=== PATIENT | female | born 2000 | race Caucasian/White ===

== ENCOUNTER 2020-04-16 08:22 | Emergency (ER) | payer BC, OTHER, MEDICAID ==
[2020-04-16 08:35] VITALS: BP 126/60; PULSE 89
--- NOTE | 2020-04-16 08:52 | EDM.PDOC ---
ED HPI GENERAL MEDICAL PROBLEM - General Chief Complaint: Lower Extremity Injury/Pain Stated Complaint: L FOOT INJURY Time Seen by Provider: 04/16/20 08:33 Source of Information: Reports: Patient History Limitations: Reports: No Limitations, Other (ER vitals temp 97.8, pulse 89, respiratory rate 18, blood pressure 126/60, pulse ox 100% on room air.) - History of Present Illness INITIAL COMMENTS - FREE TEXT/NARRATIVE: 20-year-old female presents to the emergency department with complaints of left foot/ankle injury. States that just prior to arrival she was walking down the stairs and missed the last 2 stairs and does not recall exactly what happened however she heard a popping and cracking and did have instant severe pain noted to the left lateral ankle. Onset: Today, Sudden Left Ankle Pain Score (Numeric/FACES): 5 - Related Data Allergies Allergy/AdvReac Type Severity Reaction Status Date / Time amoxicillin Allergy Rash Verified 04/16/20 08:35 Home Meds: Home Meds oxyCODONE HCl/Acetaminophen [Percocet 5-325 mg Tablet] 1 each PO Q6H PRN #10 tablet 04/16/20 [Rx] Past Medical History - Past Health History Medical/Surgical History: Denies Medical/Surgical History RELAY MAN History: Reports: - Past Surgical History HEENT Surgical History: Reports: Other (See Below) Other HEENT Surgeries/Procedures: tooth extraction 2007 Social & Family History - Family History Family Medical History: No Pertinent Family History - Caffeine Use Caffeine Use: Reports: Soda Review of Systems - Review of Systems Review Of Systems: See Below Constitutional: Reports: No Symptoms Eyes: Reports: No Symptoms Ears: Reports: No Symptoms Nose: Reports: No Symptoms Mouth/Throat: Reports: No Symptoms Respiratory: Reports: No Symptoms Cardiovascular: Reports: No Symptoms GI/Abdominal: Reports: No Symptoms Genitourinary: Reports: No Symptoms Musculoskeletal: Reports: Joint Pain (left ankle), Joint Swelling (left ankle) Skin: Reports: No Symptoms Neurological: Reports: No Symptoms. Denies: Numbness, Tingling Psychiatric: Reports: No Symptoms ED EXAM, GENERAL - Physical Exam Exam: See Below Exam Limited By: No Limitations General Appearance: Alert, WD/WN, No Apparent Distress Eye Exam: Bilateral Eye: PERRL Ears: Hearing Grossly Normal Nose: Normal Inspection Throat/Mouth: Normal Voice, No Airway Compromise Head: Atraumatic, Normocephalic Neck: Normal Inspection, Supple, Non-Tender, Full Range of Motion Respiratory/Chest: No Respiratory Distress, Lungs Clear, Normal Breath Sounds Cardiovascular: Normal Peripheral Pulses, Regular Rate, Rhythm, No Murmur Peripheral Pulses: 2+: Radial (L), Radial (R), Dorsalis Pedis (L), Dorsalis Pedis (R) GI/Abdominal: Normal Bowel Sounds, Soft, Non-Tender (Female) Exam: Deferred Rectal (Female) Exam: Deferred Back Exam: Normal Inspection, Full Range of Motion Extremities: Normal Capillary Refill, Joint Swelling, Limited Range of Motion, Other (Significant amount of swelling noted to dorsal lateral surface of the left foot/ankle.). No: Normal Range of Motion Neurological: Alert, Oriented, Normal Cognition Psychiatric: Normal Affect, Normal Mood Skin Exam: Warm, Dry, Intact, Normal Color, No Rash Lymphatic: No Adenopathy Course - Vital Signs Text/Narrative:: 20-year-old female presents to the emergency department complaints of trauma sustained to her left ankle/foot area after missing the last 2 stairs while walking down them this morning. Patient states she heard a popping and a cracking and had instant severe pain. On assessment CMS is positive patient is able to move her digits and there is a significant amount of swelling noted to the dorsal lateral area of left foot/ankle area. Patient states she has minimal pain noted. I have ordered an x-ray of the left foot and ankle. She denies needing any pain medication at this time. Last Recorded V/S: Last Vital Signs Temp 97.8 F 04/16/20 08:32 Pulse 89 04/16/20 08:32 Resp 18 04/16/20 08:32 BP 126/60 04/16/20 08:32 Pulse Ox 100 04/16/20 08:32 - Orders/Labs/Meds Orders: Active Orders 24 hr Category Date Time Status DME for Discharge [COMM] Stat Oth 04/16/20 09:44 Ordered - Radiology Interpretation Free Text/Narrative:: 4 view of the left ankle were obtained radiology impression: 1. Mild soft tissue swelling. 2. Multiple small bony densities off the midfoot on one oblique view which has the appearance of multiple small cortical avulsion fractures. This may involve the 3rd cuneiform bone. 4 views of the left foot were obtained impression per radiologist report: 1. Multiple small bony densities partially visualized which appear to be off the 3rd cuneiform bone. Small cortical avulsion fractures are possible. 2. Soft tissue swelling is noted. 3. No additional abnormality is appreciated on left foot exam. - Re-Assessments/Exams Free Text/Narrative Re-Assessment/Exam: 04/16/20 09:48 Patient will be discharged home. A walking boot has been ordered patient is to be nonweightbearing using crutches. Follow-up with Dr. Schultz within a week. Departure - Departure Time of Disposition: 09:48 Disposition: Home, Self-Care 01 Condition: Good Clinical Impression: Fracture of foot, Closed fracture of foot - Discharge Information Prescriptions: oxyCODONE HCl/Acetaminophen [Percocet 5-325 mg Tablet] 1 each PO Q6H PRN #10 tablet PRN Reason: Pain (Moderate 4-6) Instructions: Walking Boot, Adult Referrals: PCP,None [Primary Care Provider] - Forms: ED Department Discharge, ED Return to Work/School Form Additional Instructions: Seen in the emergency department with complaints of pain to your left foot/ankle area after falling down the stairs this morning. X-ray reveals you to have fractures noted to your midfoot area on the lateral side. You will get be given a walking boot and will need to use crutches. Even though you have the walking boot on do not bear any weight on the left foot. Keep it elevated as much as possible when not at work. Ice it 20 minutes at a time 3 times a day. Alternate Tylenol 650 mg with ibuprofen 600 mg every 6 hours as needed for pain. For more severe pain you may take a Percocet which has been prescribed to you. This is a narcotic and you are not allowed to drive or operate any heavy machinery while taking this medication. Please follow-up with Dr. Schultz, the orthopedic surgeon, late this week or early next week. He can be reached at [facility] [phone] Sepsis Event Note (ED) - Evaluation Sepsis Screening Result: No Definite Risk - Focused Exam Vital Signs: Vital Signs Temp Pulse Resp BP Pulse Ox 04/16/20 08:32 97.8 F 89 18 126/60 100 - My Orders Last 24 Hours: My Active Orders 04/16/20 09:44 DME for Discharge [COMM] Stat - Assessment/Plan Last 24 Hours: My Active Orders 04/16/20 09:44 DME for Discharge [COMM] Stat
--- NOTE | 2020-04-16 09:37 | CR ---
Left ankle: 4 views of the left ankle were obtained. Comparison: No prior ankle exam. Findings: Mild soft tissue swelling is seen. Ankle mortise is symmetric. Multiple small bony densities are noted off the midfoot which is seen on one oblique view which may represent small avulsion fractures off the cortex. No additional fracture or other abnormality is appreciated. Impression: 1. Mild soft tissue swelling. 2. Multiple small bony densities off the midfoot on one oblique view which has the appearance of multiple small cortical avulsion fractures. This may involve the third cuneiform bone. Diagnostic code #3
--- NOTE | 2020-04-16 09:38 | CR ---
Left foot: 4 views of the left foot were obtained. Comparison: Previous ankle exam performed earlier on the same day. Findings: Small bony densities are again seen most likely off the third cuneiform bone. Joint spaces are preserved. No additional fracture or other bony abnormality is appreciated. Impression: 1. Multiple small bony densities partially visualized which appear to be off the third cuneiform bone. Small cortical avulsion fractures are possible. 2. Soft tissue swelling is noted. 3. No additional abnormality is appreciated on left foot exam. Diagnostic code #3
== END 2020-04-16 10:20 | disposition home or self-care (01) ==
LOC: JD.ED 08:22
DX: S92.902A Unspecified fracture of left foot, initial encounter for closed fracture (principal); Z88.0 Allergy status to penicillin; W10.9XXA Fall (on) (from) unspecified stairs and steps, initial encounter
CPT/HCPCS: 73610-26-LT; 73610-LT; 73630-26-LT; 73630-LT; 99283